=== PATIENT | male | born 1950 | race Caucasian/White ===

== ENCOUNTER 2016-05-20 10:46 | Emergency (ER) | payer BC, OTHER ==
[~2016-05-20] VITALS: Ht 170.2 cm; Wt 82.1 kg
[2016-05-20] MEDS ORDERED: ATOR1TAB21 (10:57)
[2016-05-20] MEDS ORDERED: ASPI81TA85 PO (10:57)
[2016-05-20] MEDS ORDERED: OMEP40CA2 (10:57)
[2016-05-20 12:01] LABS: BASO % 0.8 % (0.0-1.0); EOS # 0.3 K/mm3 (0.0-0.50); EOS % 4.8 % (0.0-3.0); LARGE UNSTAINED CELL # 0.1 K/mm3 (0.0-0.4); LARGE UNSTAINED CELL % 1.6 % (0.0-4.0); LYMPH % 12.8 % (24.0-44.0); MEAN CORPUSCULAR HEMOGLOBIN 29.9 pg (27.0-33.0); MEAN CORPUSCULAR HGB CONC 34.8 g/dl (32.0-36.5); MONO # 0.5 K/mm3 (0.0-0.8); NEUTROPHILS # 5.1 K/mm3 (1.8-7.7); PLATELET COUNT, AUTOMATED 200 k/mm3 (150-450); RED CELL DISTRIBUTION WIDTH 12.6 % (11.5-14.5); WHITE BLOOD COUNT 6.9 K/mm3 (4.0-10.0)
[2016-05-20 12:25] LABS: ERYTHROCYTE SEDIMENTATION RATE 18 mm/hr (0-20)
[2016-05-20 12:28] LABS: ANION GAP 11 MEQ/L (8-16); BLOOD UREA NITROGEN 13 MG/DL (7-18); CALCIUM LEVEL 9.3 MG/DL (8.8-10.2); CARBON DIOXIDE LEVEL 25 MEQ/L (21-32); CHLORIDE LEVEL 106 MEQ/L (98-107); CREATININE FOR GFR 0.91 MG/DL (0.70-1.30); GLOMERULAR FILTRATION RATE > 60.0 (>49); GLUCOSE, FASTING 101 MG/DL (80-110); POTASSIUM SERUM 4.2 MEQ/L (3.5-5.1); SODIUM LEVEL 142 MEQ/L (136-145)
[2016-05-20] MEDS ORDERED: CLINDAMYCIN 600 MG/50 ML PREMIX BAG As Ordered ONE (12:37)
[2016-05-20] MEDS: CLINDAMYCIN 600 MG in APPROPRIATE DILUENT 1 EA IV ONE (12:42)
[2016-05-20] MEDS ORDERED: CLEO300C2 PO (12:52)
[2016-05-20] MEDS ORDERED: CIPR0.3S AD (12:54)
[2016-05-20 13:15] VITALS: BP 132/72
== END 2016-05-20 13:22 | disposition home or self-care (01) ==
LOC: M ED 11:53
DX: H60.11 Cellulitis of right external ear (principal); E78.00 Pure hypercholesterolemia, unspecified; K21.9 Gastro-esophageal reflux disease without esophagitis; Z88.0 Allergy status to penicillin; Z79.82 Long term (current) use of aspirin; Z79.899 Other long term (current) drug therapy